=== PATIENT | male | born 1970 | race Caucasian/White ===

== ENCOUNTER 2020-08-16 10:51 | Day surgery (SDC) | payer SELFPAY ==
[2020-08-14 13:05] VITALS: BMI 27.1
[2020-08-16] MEDS ORDERED: LIDOCAINE HCL 1%, 10 MG/ML (20ML VIAL) ONE (11:29)
[2020-08-16] MEDS ORDERED: EPINEPHrine/PF 1 MG/1 ML (1:1,000) AMPULE ONE (11:29)
[2020-08-16] MEDS ORDERED: SUCCINYLCHOLINE CHLORIDE 200 MG/10 ML SYRINGE ONE (12:49)
[2020-08-16] MEDS ORDERED: PROPOFOL 20 ML ONE ×2 (12:49)
[2020-08-16] MEDS ORDERED: MIDAZOLAM HCL 2 MG/2 ML SINGLE DOSE VIAL ONE (12:50)
[2020-08-16] MEDS ORDERED: DEXAMETHASONE SOD PHOSPHATE 4 MG/1 ML VIAL ONE (13:04)
[2020-08-16] MEDS ORDERED: LIDOCAINE HCL/PF 2% SDV 5ML VIAL ONE (13:04)
[2020-08-16] MEDS ORDERED: ceFAZolin SODIUM 1 GM VIAL ONE (13:04)
[2020-08-16] MEDS ORDERED: LIDOCAINE HCL 2% JELLY (5 ML/TUBE) ONE (13:04)
[2020-08-16] MEDS ORDERED: ONDANSETRON 4 MG/2 ML VIAL ONE (13:04)
[2020-08-16] MEDS ORDERED: PROMETHAZINE HCL 25 MG/1 ML VIAL IVPUSH PRN (14:24)
[2020-08-16] MEDS ORDERED: oxyCODONE HCL 5 MG TABLET PO PRN ×2 (14:24)
[2020-08-16] MEDS ORDERED: ONDANSETRON 4 MG/2 ML VIAL IVPUSH PRN (14:24)
[2020-08-16 15:27] VITALS: TEMP 98.4
[2020-08-16] MEDS ORDERED: traMADol HCL 50 MG TABLET ONE (15:44)
[2020-08-16 16:21] VITALS: BP 128/82; PULSE 88
== END 2020-08-16 16:15 | disposition home or self-care (01) ==
LOC: FASU 10:51
PROVIDERS: ATTEND Surgery Plastic and Reconstructive Surgery
PROC: 0J083ZZ Alteration of Abdomen Subcutaneous Tissue and Fascia, Percutaneous Approach (ICD-10-PCS; principal; 2020-08-16 13:18)
PROC: 0J063ZZ Alteration of Chest Subcutaneous Tissue and Fascia, Percutaneous Approach (ICD-10-PCS; 2020-08-16 13:18)
DX: E88.1 Lipodystrophy, not elsewhere classified (principal)
CPT/HCPCS: 94760